=== PATIENT | male | born 1950 | race Caucasian/White ===

== ENCOUNTER 2023-04-04 06:20 | Emergency (ER) | payer MEDICARE ==
[~2023-04-04] VITALS: Ht 177.8 cm; Wt 99.2 kg
[~2023-04-04 06:20] MED LIST: ALBU8HFA PO
[2023-04-04 06:29] VITALS: TEMP 98
[2023-04-04] MEDS ORDERED: furosemide 40mg/4ml inj IV ONE (06:55)
[2023-04-04 07:39] LABS: BASOPHILS # (AUTO) 0.1 X10'3 (0-0.2); BASOPHILS % (AUTO) 0.7 % (0-1); EOSINOPHILS # (AUTO) 0.2 X10'3 (0-0.9); EOSINOPHILS % (AUTO) 2.8 % (0-6); HEMATOCRIT 46.3 % (42.0-52.0); HEMOGLOBIN 15.6 g/dl (14.0-17.9); LYMPHOCYTES # (AUTO) 1.7 X10'3 (1.1-4.8); LYMPHOCYTES % (AUTO) 22.3 % (21-51); MEAN CORPUSCULAR HEMOGLOBIN 32.8 PG (27.0-31.0); MEAN CORPUSCULAR HGB CONC 33.7 g/dL (33.0-36.5); MEAN CORPUSCULAR VOLUME 97.3 FL (78-98); MEAN PLATELET VOLUME 7.9 FL (7.4-10.4); MONOCYTES # (AUTO) 0.7 X10'3 (0-0.9); MONOCYTES % (AUTO) 8.8 % (2-12); NEUTROPHILS # (AUTO) 4.9 X10'3 (1.8-7.7); NEUTROPHILS % (AUTO) 65.4 % (42-75); PLATELET COUNT 339 X10'3 (140-440); RED BLOOD COUNT 4.76 X10'6 (4.70-6.10); RED CELL DISTRIBUTION WIDTH 14.2 % (11.5-14.5); WHITE BLOOD COUNT 7.5 X10'3 (4.5-11.0)
[2023-04-04 07:49] LABS: ALANINE AMINOTRANSFERASE 30 U/L (12-78); ALBUMIN 3.2 G/DL (3.4-5.0); ALBUMIN/GLOBULIN RATIO 0.8 (1.1-1.5); ALKALINE PHOSPHATASE 149 IU/L (46-116); ANION GAP 8 (8-16); ASPARTATE AMINO TRANSFERASE 21 U/L (10-37); BILIRUBIN,TOTAL 0.6 MG/DL (0.1-1.0); BLOOD UREA NITROGEN 6 MG/DL (7-18); BUN/CREATININE RATIO 7.9 (10.0-20.0); CHLORIDE 101 MMOL/L (99-107); CREATININE 0.76 MG/DL (0.60-1.10); GLUCOSE 109 MG/DL (70-104); POTASSIUM 3.3 MMOL/L (3.5-5.1); SODIUM 141 MMOL/L (135-145); TOTAL CARBON DIOXIDE 32.2 MMOL/L (24-32); TOTAL PROTEIN 7.2 G/DL (6.4-8.2); eCRCL 91 ML/MIN; eGFR > 90 ML/MIN
[2023-04-04 07:57] LABS: PRO BRAIN NATRIURETIC PEPTIDE 164 PG/ML (0-125)
[2023-04-04] MEDS ORDERED: ziprasidone IM 20mg inj **IM only IM ONE (08:15)
--- NOTE | 2023-04-04 11:16 | NUR ---
Jairo youngerpurnima in [facility] - 04/04/23 at 1255 by MASON Pt's dog was taken to [facility] to be taken care of until pt gets discharged. [facility] address: [address] in [place], [place] Phone #: [phone]
[2023-04-04 12:18] VITALS: BP 131/61; PULSE 91; RESP 16; O2SAT 91
[2023-04-04 12:49] LABS: URINE AMPHETAMINE SCREEN NEGATIVE (Neg); URINE BARBITUATE SCREEN NEGATIVE (Neg); URINE BENZODIAZEPINES SCREEN NEGATIVE (Neg); URINE CANNABINOID SCREEN NEGATIVE (Neg); URINE COCAINE SCREEN NEGATIVE (Neg); URINE METHADONE SCREEN NEGATIVE (Neg); URINE OPIATE SCREEN NEGATIVE (Neg); URINE PHENCYCLIDINE SCREEN NEGATIVE (Neg)
--- NOTE | 2023-04-04 12:54 | NUR ---
Note souleymane in EDM - 04/04/23 at 1255 by MASON Pt c/o sudden onset SOB, some wheezing heard. 96% on RA, [address] Allan michael.
--- NOTE | 2023-04-04 13:49 | NUR ---
covid swab sent. pt tolerated well. Pt dressed out into green scrubs. security stand by. Pt more calm then previously. Pt now sitting up, eating lunch. Pt medically cleared by Dr Frey. Waiting OF bed
--- NOTE | 2023-04-04 15:14 | NUR ---
Pt moved from ER main bed 11 to overflow bed 25.
--- NOTE | 2023-04-04 15:20 | NUR ---
Pt fell immediately asleep. Pt lying on his right side in bed snoring; respirations regular.
[2023-04-04 15:47] LABS: BILIRUBIN,URINE NEGATIVE (Neg); CLARITY,URINE CLEAR (Clear); COLOR,URINE STRAW (Yellow); GLUCOSE, URINE NEGATIVE (Neg); KETONES,URINE NEGATIVE (Neg); LEUKOCYTE ESTERASE ,URINE NEGATIVE (Neg); NITRITES, URINE NEGATIVE (Neg); OCCULT BLOOD,URINE TRACE-INTACT (Neg); PH,URINE 6.5 (4.8-8.0); PROTEIN,URINE NEGATIVE (Neg); UROBILINOGEN,URINE 0.2 E.U/dL (0.2-1.0)
[2023-04-04 15:53] LABS: UA COLLECTION TYPE CLN CATCH MIDSTREAM
[2023-04-04 15:54] LABS: BACTERIA,URINE NONE SEEN /HPF (Neg); MUCUS STRANDS NONE SEEN /LPF (Neg); RBC,URINE 0-2 /HPF (0-2); SQUAMOUS EPITHELIAL CELL,UR NONE SEEN /LPF (FEW); WBC,URINE 0-4 /HPF (0-4)
[2023-04-04 15:55] LABS: HYALINE CASTS 0-3 /LPF (NEGATIVE)
--- NOTE | 2023-04-04 16:53 | NUR ---
Pt reports that he is feeling much better. Pt denies depression, anxiety, SI/HI/AH/VH. Pt was seen by MD Dr Kent. Pt is being discharged with an RX for hydroxyzine.
[2023-04-04] MEDS ORDERED: HYDR-3686 PO (16:56)
--- NOTE | 2023-04-04 17:41 | NUR ---
Pt called his sister Mansi Reionso [phone] to come pick him up. Pt ambulated off the unit accompanied by tech. All belongings returned.
== END 2023-04-04 17:43 | disposition home or self-care (01) ==
LOC: ER 06:20
DX: Z00.00 Encounter for general adult medical examination without abnormal findings (principal); Z20.822 Contact with and (suspected) exposure to COVID-19; F30.9 Manic episode, unspecified; R22.43 Localized swelling, mass and lump, lower limb, bilateral; I10 Essential (primary) hypertension; J44.9 Chronic obstructive pulmonary disease, unspecified; Z79.899 Other long term (current) drug therapy
CPT/HCPCS: 36415; 71045; 71250; 80053; 80305; 80320; 81001; 83605; 83880; 84484; 85025; 87040; 87811; 93005; 96372; 96374; 99285; J1940; J3486; J7030; A4615